=== PATIENT | female | born 1975 | race Caucasian/White ===

== ENCOUNTER → 2020-08-17 | Outpatient (CLI) | payer OTHER ==
[~2020-08-17] MED LIST: MEDROL DOSEPAK 24 MG PO; Voltaren Gel 1 % TOP
== END ==
LOC: KOH-I 15:05
DX: M54.2 Cervicalgia (principal); M25.511 Pain in right shoulder; R93.7 Abnormal findings on diagnostic imaging of other parts of musculoskeletal system; Z98.1 Arthrodesis status
CPT/HCPCS: 72141; 73221

== ENCOUNTER → 2020-12-13 | Outpatient (CLI) | payer OTHER | LOC: EXRD 10:06 | DX: R10.9 Unspecified abdominal pain (principal); K82.4 Cholesterolosis of gallbladder | CPT/HCPCS: 76700 ==

== ENCOUNTER → 2021-01-10 | Outpatient (CLI) | payer OTHER | LOC: KOH-I 12:55 | DX: M25.561 Pain in right knee (principal); M25.571 Pain in right ankle and joints of right foot | CPT/HCPCS: 73560; 73620 ==

== ENCOUNTER → 2021-02-09 | Outpatient (CLI) | payer OTHER | LOC: NM 09:58 | DX: R10.11 Right upper quadrant pain (principal) | CPT/HCPCS: 78226; A9537 ==

== ENCOUNTER → 2022-04-05 | Outpatient (CLI) | payer OTHER | LOC: KOH-I 09:27 | DX: R10.11 Right upper quadrant pain (principal); K76.0 Fatty (change of) liver, not elsewhere classified | CPT/HCPCS: 76705 ==